=== PATIENT | female | born 1950 | race Caucasian/White ===

== ENCOUNTER → 2018-03-26 16:08 | Outpatient (CLI) | payer MEDICARE, SELFPAY ==
--- NOTE | 2018-03-26 16:18 | BI_ITS ---
MAMMOGRAPHY - BILATERAL SCREENING REASON FOR EXAM: Female, 67 years old. Routine annual screening examination. PERTINENT HISTORY: Mother with breast cancer. TECHNIQUE: Digital bilateral breast syed (3D mammographic acquisition) in the CC and MLO projections. 2-D mediolateral oblique (MLO) and craniocaudad (CC) views of both breasts were obtained. CAD: Full Field Digital Mammography with Computer Added Detection was performed. COMPARISON: Comparison is made with prior study dated July 19, 2016 and January 24, 2015. FINDINGS: Breast Composition: There are scattered areas of fibroglandular density. There are no dominant masses or suspicious calcifications. No other significant abnormalities are identified. There has been no significant change since the prior study. BI/SCREENING MAMM (CAD), BILAT IMPRESSION: Stable bilateral screening mammogram. Yearly follow-up mammogram recommended. (A) ASSESSMENT CATEGORY: BIRADS Category 1: Negative. A letter regarding these results will be sent to the patient by the facility within 30 days. Approximately 10% of breast cancers are not detected by mammography. A normal mammogram should not delay biopsy of a clinically suspicious abnormality. [id number] Electronically Signed: Chris Johns MD at 8:07 EDT Tel [phone], Service support ,
== END ==
DX: Z12.31 Encounter for screening mammogram for malignant neoplasm of breast (principal)
CPT/HCPCS: 77063; 77067

== ENCOUNTER → 2019-06-28 13:33 | Outpatient (CLI) | payer MEDICARE, SELFPAY ==
[2015-01-10 18:43] VITALS: BMI 29.2
--- NOTE | 2019-06-28 13:40 | EKG12_ITS ---
Test Reason : CP Blood Pressure : / mmHG Vent. Rate : 080 BPM Atrial Rate : 080 BPM P-R Int : 164 ms QRS Dur : 076 ms QT Int : 394 ms P-R-T Axes : 058 029 057 degrees QTc Int : 454 ms Normal sinus rhythm Normal ECG Reconfirmed by YOLANDA SAVAGE, DEQUAN ([id number]), assistant film editor ALFREDITO FOSTER ([id number]) on 07/02/2019 8:49:30 AM Referred By: Nancy Unger Confirmed By:DEQUAN GUERRERO MD
== END ==
PROVIDERS: Referring Provider Nurse Practitioner Family; Visit Provider Nurse Practitioner Family
DX: R07.89 Other chest pain (principal)
CPT/HCPCS: 93005

== ENCOUNTER 2019-06-28 13:57 | Emergency (ER) | payer MEDICARE, SELFPAY ==
[2019-06-28 14:05] VITALS: BP 138/67; PULSE 78; RESP 18; TEMP 36.6; O2SAT 96; BMI 26.6
--- NOTE | 2019-06-28 14:23 | RAD_ITS ---
STUDY: X-RAY CHEST REASON FOR EXAM: Female, 68 years old. Chest pain TECHNIQUE: Frontal and lateral views COMPARISON: March 30, 2012 FINDINGS: The lungs are clear and expanded. There is no demonstrated pleural abnormality. Normal size heart. Normal mediastinum and patti. Normal visualized pulmonary arteries. Normal visualized aortic arch and descending thoracic aorta. Degenerative changes of the thoracic spine. Normal visualized ribs, clavicles, and shoulders. There is no demonstrated abnormality of the visualized soft tissue structures of the upper abdomen. RAD/Chest PA and Lateral IMPRESSION: Normal x-ray examination of the chest. Electronically Signed: Rafael Ramos DO at 15:51 EST Tel [phone], Service support ,
[2019-06-28 14:32] LABS: Absolute Neutrophil Count 3.9 X10^3/uL (2.0-7.7); Basophil# 0.03 X10^3/uL; Basophil% 0.5 % (0-1); Eosinophil# 0.05 X10^3/uL; Eosinophils% 0.8 % (0-5); Hematocrit 38.7 % (37-47); Hemoglobin 12.7 g/dL (12.0-15.0); Lymphocyte % 28.7 % (19-41); Mean Corp Hgb Conc 32.8 g/dL (32-36); Mean Corpuscular Hgb 29.9 pg (27.0-32.0); Mean Corpuscular Volume 91.1 fL (81-99); Mean Platelet Vol. 11.2 fl (6.2-12.0); NRBC Flagged by Analyzer 0 % (0-5); Neutrophil # 3.89 X10^3/uL (2.7-7.7); Neutrophil % 61.8 % (47-70); Platelet Count 236 K/mm3 (150-450); RBC Distribution Width CV 13.3 % (11.6-14.6); RBC Distribution Width SD 44.5 fl (35.1-43.9); Red Blood Count 4.25 M/mm3 (4.2-5.4); White Blood Count 6.3 K/mm3 (4.4-11.0)
--- NOTE | 2019-06-28 14:49 | CPS ---
Pt. came to [facility] as a out patient. EKG was ordered by Nancy RODRIGUES. Was completed by JTAC at 13:48. Patient then went to ER to be seen for CP. EKG that was completed as a out patient was given to . Physician approved of this EKG for the CP because it was within 15-20 mins prior to being seen in ER.
[2019-06-28 14:55] LABS: Anion Gap 5 (5-15); BUN 19 mg/dL (7-18); BUN/Creat Ratio 20.7 RATIO (10-20); Calcium,Total 8.9 mg/dL (8.5-10.1); Chloride 105 mmol/L (98-107); Creatinine, Serum 0.92 mg/dL (0.55-1.02); EST Glomerular Filtration Rate 64 mL/min (>60); Est Glom Filt Rate - Afr Amer 78 mL/min (>60); Estimated Creatinine Clearance 56.12 ml/min; Glucose 125 mg/dL (74-106); Potassium 3.5 mmol/L (3.5-5.1); Sodium Level 141 mmol/L (136-145)
[2019-06-28 15:29] VITALS: BP 125/61; PULSE 72; RESP 13
[2019-06-28 16:00] VITALS: BP 111/66; PULSE 70; RESP 14; O2SAT 96
--- NOTE | 2019-06-28 16:14 | ED.DCSUM_ITS ---
- ER Visit Summary Date of Service: 06/28/19 Chief Complaint: Chest pain History of Present Illness: The patient is a 68 F who presents with chest pain that has been constant for the past month. Patient describes the pain is sharp and aching. Patient states the pain is over the substernal area and right lower chest. Patient states nothing makes it better or worse. Patient saw her primary care physician for this who did not feel it was cardiac in nature but ordered an outpatient EKG in case her pain would return. Patient had an outpatient EKG done today which was normal and then presented to the emergency department. Physical Examination: Vital signs are stable. Patient is afebrile. Patient is in no acute distress. Heart was regular rate and rhythm. Lungs are clear and equal bilaterally. There is tenderness over the substernal and right lower chest. There is no bony crepitance or step-off. Abdomen is soft and nontender. Cranial nerves II through XII are intact. There are no focal motor or sensory deficits noted. Oral mucosa is pink and moist. Neck is supple. Trachea is midline. There is no JVD noted. Test Results: EKG showed normal sinus rhythm with a rate of 80. There are no acute ST or T wave changes. This was unchanged compared to previous EKG dated 03/30/2012. CBC, basic metabolic profile, and troponin were obtained were all within normal limits. PA and lateral chest x-ray was obtained. There is no acute cardiopulmonary process. Emergency Department Course and Treatment: Patient was feeling better on reevaluation. Patient has a HEART score of 3. Patient was advised that this is low risk for acute cardiac event. Patient was instructed to follow-up with her primary care physician in 5 to 7 days. Patient understood and was agreeable with the plan. All questions were answered. Disposition: Discharge home Impression: Chest pain This note was generated with [employer] dictation software. It may contain incorrect words, spelling, and punctuation that were not noted in review of the chart prior to signing ED Disposition - Plan for ED Patient: Disposition: Home or Assisted Living Diagnosis: Chest pain Instructions: CHEST PAIN, Uncertain Cause Referrals: Shreya Tao [Primary Care Provider] - 5-7 Days
[2019-06-28 16:35] VITALS: BP 126/53
== END 2019-06-28 16:37 | disposition home or self-care (01) ==
PROVIDERS: Emergency Provider Emergency Medicine
DX: R07.9 Chest pain, unspecified (principal); E11.9 Type 2 diabetes mellitus without complications; Z79.84 Long term (current) use of oral hypoglycemic drugs; Z79.82 Long term (current) use of aspirin; Z79.899 Other long term (current) drug therapy
CPT/HCPCS: 71046; 80048; 84484; 85025; 93005; 99285; A4216

== ENCOUNTER → 2019-07-29 09:52 | Outpatient (CLI) | payer MEDICARE, MEDICAID, SELFPAY ==
--- NOTE | 2019-07-29 09:57 | NM_ITS ---
CLINICAL: 68-year-old female with reported history of right upper quadrant abdominal pain. RADIONUCLIDE HEPATOBILIARY SCINTIGRAPHY COMPARISON: None available FINDINGS: Following the intravenous administration of 5.3 mCi of 99m Tc Mebrofenin, hepatobiliary images reveal: 1. Relatively prompt and homogeneous radiopharmaceutical concentration is noted by a normal sized liver. No parenchymal defects are identified. 2. Gallbladder activity is identified at 15 minutes post radiopharmaceutical administration. 3. Small intestinal tract is observed at 45 minutes following tracer injection. 4. Washout of the radiopharmaceutical by the hepatic parenchyma appears qualitatively normal. Cholecystokinin (0.02 ug/kg) was administered intravenously over a 30-minute period. The post CCK gallbladder ejection fraction calculated at 33 minutes following Cholecystokinin administration was noted to be 46.0 % (normal greater than 35%). During 30 minutes of post CCK imaging, there is no scintigraphic evidence of reflux of the radiotracer into the common hepatic duct or refilling of the gallbladder. NM/Hepatobilliary Img w/Pharm Int IMPRESSION: 1. NORMAL 99m Tc Mebrofenin hepatobiliary imaging examination with Cholecystokinin. A. A gallbladder ejection fraction calculated to be greater than 35% following the administration of Cholecystokinin makes the probability of functional hepatobiliary disease (gallbladder and/or sphincter of Oddi dyskinesia) and/or organic hepatobiliary disease (chronic acalculous cholecystitis and/or cystic duct syndrome) to be low. (Samantha Hallman et al, Journal of Nuclear Medicine 32:1695, 1991). Electronically Signed: Nic Herrera DO at 22:54 EST Tel , Service support ,
== END ==
DX: R10.811 Right upper quadrant abdominal tenderness (principal)
CPT/HCPCS: 78227; A9537; J2805

== ENCOUNTER → 2019-11-04 10:07 | Outpatient (CLI) | payer MEDICARE, MEDICAID, SELFPAY ==
--- NOTE | 2019-11-04 10:10 | US_ITS ---
STUDY: ABDOMINAL ULTRASOUND REASON FOR EXAM: Female, 69 years old. RUQ PAIN AND BURNING X 2 WEEKS TECHNIQUE: Transabdominal ultrasound was performed with real-time and static thomas scale imaging. TECHNICAL QUALITY: Adequate. COMPARISON: None. FINDINGS: Liver: The liver measures 14.7 cm. There is increased echogenicity consistent with fatty infiltration. The bile ducts are within normal limits. There is hepatic color flow. The direction of portal flow is hepatopetal. There is no demonstrated mass lesion. Portal vein measurement: Gallbladder: Normal distended gallbladder. The gallbladder wall measures 2.6 mm. There is a positive sonographic Gage''s sign. There is no pericholecystic fluid. There is a solitary echogenic gallstone within the gallbladder. This measures 1.6 cm x 1.2 cm x 1.1 cm. Common Bile Duct (C.B.D.): The common bile duct measures 5.7 mm. Pancreas: Normal size of the head, body and tail of the pancreas. There is increased echogenicity of the pancreas. There is no demonstrated pancreatic mass or cyst. Spleen: Normal size of the spleen. The spleen measures 10.5 cm x 4.1 cm x 3.7 cm. Right Kidney: Normal size of the right kidney. The right kidney measures 9.3 cm x 4.5 cm x 4.2 cm. Normal renal cortex. The right cortex measures 1.5 cm. There is no demonstrated renal mass or cyst. There is no right hydronephrosis. Suspect 2 small nonobstructive intrarenal calculi. The larger measures 5 mm. Left Kidney: Normal size of the left kidney. The left kidney measures 10.7 cm x 4.2 cm x 4.4 cm. Normal renal cortex. The left cortex measures 1.6 cm. There is a 1.9 cm x 2.6 x 2.1 cm left renal cyst. There is no left hydronephrosis. Aorta: Unremarkable. I.V.C.: The IVC is patent. There is no ascites. US/Abdomen Complete IMPRESSION: Fatty infiltration of the liver. Solitary gallstone. Left renal cyst. 2 tiny nonobstructive right intrarenal calculus. Electronically Signed: Chris Johns, at 11:52 EDT , Service support ,
== END ==
DX: R10.11 Right upper quadrant pain (principal)
CPT/HCPCS: 76700

== ENCOUNTER 2022-11-19 13:15 | Emergency (ER) | payer MEDICARE, MEDICAID, SELFPAY ==
[2022-11-19 13:18] VITALS: BP 153/69; PULSE 88; RESP 14; TEMP 36.6; O2SAT 96; BMI 26.1
[2022-11-19 13:32] VITALS: BP 140/63; BP 146/56; BP 149/62; PULSE 100; PULSE 73; PULSE 84
--- NOTE | 2022-11-19 13:32 | EKG12_ITS ---
Test Reason : NEURO SYMPTOMS Blood Pressure : / mmHG Vent. Rate : 073 BPM Atrial Rate : 073 BPM P-R Int : 176 ms QRS Dur : 076 ms QT Int : 400 ms P-R-T Axes : 056 028 048 degrees QTc Int : 440 ms Normal sinus rhythm Normal ECG Confirmed by YOLANDA SAVAGE, DEQUAN ([id number]), photographic editor JAMIA MARIN ([id number]) on 11/20/2022 9:48:29 AM Referred By: NELLY Confirmed By:DEQUAN GUERRERO MD
[2022-11-19 13:34] VITALS: BMI 26.4
--- NOTE | 2022-11-19 13:34 | EX.ED.DYSGE1 ---
HPI History of Present Illness Chief Complaint: Neuro S/Sx Narrative Narrative: 72-year-old female presenting with dizziness. She states that yesterday/overnight she developed some vertiginous symptoms. She took her last dose of meclizine which she had and she states that her vertiginous dizziness got better however she still had a little bit of leftover nausea felt like she might be a little lightheaded. She woke up this morning feeling similar. She was able to ambulate. She went to the urgent care today and was referred to the ER out of concern for stroke. Patient does have a mild headache. No visual complaints. No slurred speech. [facility] Medical History Anxiety Arthritis Atrial fibrillation Back pain Diabetes Gallstones GERD (gastroesophageal reflux disease) Hyperlipidemia Hypertension Mitral valve prolapse Home Medications aspirin 81 mg chewable tablet 81 mg PO DAILY 01/10/15 [History Last Taken 01/09/15] hydrochlorothiazide 25 mg tablet 25 mg PO DAILY 01/10/15 [History Last Taken 01/09/15] lisinopril 10 mg tablet 10 mg PO DAILY 01/10/15 [History Last Taken 01/09/15] paroxetine HCl 40 mg tablet 20 mg PO DAILY 01/10/15 [History Last Taken 01/09/15] rosuvastatin 10 mg tablet 10 mg PO DAILY 01/10/15 [History Last Taken 01/09/15] glipizide 5 mg tablet 5 mg PO DAILY 11/19/22 [History Last Taken Unknown] meclizine 25 mg tablet 25 mg PO TID PRN dizziness #30 tabs 11/19/22 [Rx Last Taken Unknown] omeprazole magnesium 20 mg tablet,delayed release (Prilosec OTC) 20 mg PO DAILY 11/19/22 [History Last Taken Unknown] Allergy/AdvReac Type Severity Reaction Status Date / Time metformin AdvReac Pain in Verified 11/19/22 13:17 joints Family History Mother Diabetes Breast cancer mets to LN Grandmother Diabetes Surgical History History of colonoscopy (~2015) History of esophagogastroduodenoscopy (EGD) (~2015) History of total vaginal hysterectomy Social History Smoking Status: Never smoker ROS ROS ED Review of Systems ROS Unobtainable: Denies due to encephalopathy Constitutional Constitutional ED: Denies chills, fever(s) or subjective Eyes Eyes: Denies blurry vision or change in vision ENT ENT ED: Denies ear pain or rhinorrhea Cardiovascular Cardiovascular: Denies chest pain Respiratory/Chest Respiratory/Chest: Denies cough, dyspnea or dyspnea on exertion Gastrointestinal Gastrointestinal: Reports nausea; Denies abdominal pain Genitourinary Genitourinary ED: Denies dysuria or hematuria Musculoskeletal Musculoskeletal: Denies arthralgias or back pain Integumentary Denies abscess or Abrasions Neurologic Neurologic: Reports headache(s) and other Details: Dizziness Psychiatric Psychiatric: Denies anxiety or depression EXAM Physical Exam Const Vital Signs: 11/19/22 13:18 11/19/22 13:32 Temperature 97.8 F Temperature Source Temporal Pulse Rate 88 Pulse Rate [Lying] 73 Pulse Rate [Sitting (for 1 minute prior to obtaining)] 84 Pulse Rate [Standing (for 1 minute prior to obtaining)] 100 Respiratory Rate 14 Blood Pressure 153/69 H Blood Pressure [Lying] 149/62 H Blood Pressure [Sitting (for 1 minute prior to obtaining)] 146/56 H Blood Pressure [Standing (for 1 minute prior to obtaining)] 140/63 H Blood Pressure Mean 97 Blood Pressure Mean [Lying] 91 Blood Pressure Mean [Sitting (for 1 minute prior to obtaining)] 86 Blood Pressure Mean [Standing (for 1 minute prior to obtaining)] 88 Pulse Ox 96 Oxygen Delivery Method Room Air Positive well nourished General Appearance ED: NAD HEENT Reports moist mucous membranes and dry mucous membranes HEENT Narrative: Positive [place] on exam. Mouth ED: Yes dry mucous membranes Mouth: dry mucous membranes Eyes PERRL and EOMs intact bilaterally MDM MDM MDM Narrative Medical decision making narrative: Patient presenting with initially vertiginous dizziness and then she states she feels nauseous and lightheaded. Denies any chest pain, palpitations, shortness of breath. No fevers or chills. Patient states that when she took her meclizine earlier did help and the vertiginous symptoms are gone. I suspect this is simply vertigo. We will obtain lab work to rule out electrolyte abnormalities, dehydration, anemia. Obtain EKG to assess for dysrhythmia. She will be accompanied by high-sensitivity troponin. Patient reporting any chest pain. She is given meclizine and Phenergan here. I did obtain orthostatic vital signs and her blood pressures remained stable however her heart rate does increase 73-100. Patient is given a liter normal saline. CBC shows a normal white blood cell count of 6.4. Hemoglobin hematocrit are stable. Platelets are normal. Liver function, renal function, all within normal limits. Potassium slightly low at 3.3. High-sensitivity troponin is 5. EKG on my interpretation shows normal sinus rhythm with ventricular rate of 73 beats a minute outside of ischemic change or dysrhythmia. Impression: 1. Dizziness Lab Data Labs: Laboratory Results - last 24 hr 11/19/22 11/19/22 13:13 13:13 WBC 6.4 RBC 4.53 Hgb 12.7 Hct 39.7 MCV 87.6 MCH 28.0 MCHC 32.0 RDW Std Deviation 44.1 H RDW Coeff of Anthony 13.9 Plt Count 242 MPV 11.3 Immature Gran % (Auto) 0.200 Neut % (Auto) 57.0 Lymph % (Auto) 34.0 [place] % (Auto) 6.8 Eos % (Auto) 1.2 Baso % (Auto) 0.8 Absolute Neuts (auto) 3.7 Absolute Lymphs (auto) 2.19 Nucleated RBC % 0 Sodium 143 Potassium 3.3 L Chloride 104 Carbon Dioxide 32.0 Anion Gap 7 BUN 15 Creatinine 0.91 Estim Creat Clear Calc 53.54 Est GFR (MDRD) Af Amer 78 Est GFR (MDRD) Non-Af 64 BUN/Creatinine Ratio 16.4 Glucose 129 H Calcium 9.1 Total Bilirubin 0.60 AST 41 H ALT 33 Alkaline Phosphatase 81 Troponin I High Sens 5 Total Protein 7.0 Albumin 3.6 Globulin 3.4 Albumin/Globulin Ratio 1.1 Discharge Plan Triage Chief Complaint: Neuro S/Sx ED Provider: Brody Cobb Dx/Rx/DC Orders Instructions: ED Vertigo, Unspecified Prescriptions: New meclizine 25 mg tablet 25 mg PO TID PRN (Reason: dizziness) Qty: 30 0RF No Action lisinopril 10 MG tablet 10 mg PO DAILY Label Comments: blood pressure aspirin 81 MG tablet,chewable 81 mg PO DAILY Label Comments: heart health hydrochlorothiazide 25 MG tablet 25 mg PO DAILY Label Comments: blood pressure paroxetine HCl 40 MG tablet 20 mg PO DAILY Label Comments: depression rosuvastatin 10 MG tablet 10 mg PO DAILY Label Comments: high cholesterol glipizide 5 mg tablet 5 mg PO DAILY Label Comments: TAKE 1/2 TABLET EVERY DAY FOR 2 WEEKS, THEN TAKE 1 TABLET DAILY omeprazole magnesium [Prilosec OTC] 20 mg Tablet,Delayed Release (Dr/Ec) 20 mg PO DAILY Primary Care Provider: Yeimy Emery NP Referrals: Yeimy Emery NP, [employer] [Primary Care Provider] - Disposition Disposition: Home, Self Care
[2022-11-19] MEDS: proMETHazine 25 MG/ML Syringe 12.5 MG IM (13:50)
[2022-11-19] MEDS: Meclizine HCl 25 MG Tablet PO (13:51)
[2022-11-19 13:59] LABS: Absolute Lymphocyte Count 2.19 X10^3/uL (0.83-4.51); Absolute Neutrophil Count 3.7 X10^3/uL (2.0-7.7); Basophil# 0.05 X10^3/uL; Basophil% 0.8 % (0-1); Eosinophil# 0.08 X10^3/uL; Eosinophils% 1.2 % (0-5); Hematocrit 39.7 % (37-47); Hemoglobin 12.7 g/dL (12.0-15.0); Lymphocyte # 2.19 X10^3/ul (0.83-4.51); Mean Corpuscular Volume 87.6 fL (81-99); Mean Platelet Vol. 11.3 fl (6.2-12.0); Monocyte# 0.44 X10^3/uL; Monocyte% 6.8 % (0-10); NRBC Flagged by Analyzer 0 % (0-5); Neutrophil # 3.67 X10^3/uL (2.7-7.7); Platelet Count 242 K/mm3 (150-450); RBC Distribution Width CV 13.9 % (11.6-14.6); RBC Distribution Width SD 44.1 fl (35.1-43.9); Red Blood Count 4.53 M/mm3 (4.2-5.4); White Blood Count 6.4 K/mm3 (4.4-11.0)
[2022-11-19 14:10] LABS: ALB/GLOB Ratio 1.1 RATIO (0.9-2.4); AST(SGOT) 41 U/L (15-37); Alanine Aminotransfer ALT/SGPT 33 U/L (13-56); Albumin, Serum 3.6 g/dL (3.2-5.0); Alkaline Phosphatase 81 U/L (45-117); Anion Gap 7 (5-15); BUN 15 mg/dL (7-18); BUN/Creat Ratio 16.4 RATIO (10-20); Calcium,Total 9.1 mg/dL (8.5-10.1); Chloride 104 mmol/L (98-107); Creatinine, Serum 0.91 mg/dL (0.55-1.02); EST Glomerular Filtration Rate 64 mL/min (>60); Est Glom Filt Rate - Afr Amer 78 mL/min (>60); Estimated Creatinine Clearance 53.54 ml/min; Globulin 3.4 g/dL (2.2-4.2); Glucose 129 mg/dL (74-106); Potassium 3.3 mmol/L (3.5-5.1); Sodium Level 143 mmol/L (136-145); Troponin-I HS 5 pg/mL (3.0-54.0)
[2022-11-19] MEDS: 0.9% Normal Saline 1,000 ML 999 ML IV (14:35)
[2022-11-19 15:29] VITALS: BP 140/60; PULSE 90; RESP 16; O2SAT 99
== END 2022-11-19 16:04 | disposition home or self-care (01) ==
PROVIDERS: Emergency Provider Student in an Organized Health Care Education/Training Program; PCP Registered Nurse; Visit Provider Student in an Organized Health Care Education/Training Program
DX: R42 Dizziness and giddiness (principal); E11.9 Type 2 diabetes mellitus without complications; R51.9 Headache, unspecified; I10 Essential (primary) hypertension; E78.5 Hyperlipidemia, unspecified; K21.9 Gastro-esophageal reflux disease without esophagitis; Z79.82 Long term (current) use of aspirin; Z79.84 Long term (current) use of oral hypoglycemic drugs; Z79.899 Other long term (current) drug therapy
CPT/HCPCS: 80053; 84484; 85025; 93005; 96360; 96372; 99284; J7030; A4216

== ENCOUNTER 2025-04-17 19:25 | Emergency (ER) | payer MEDICARE, MEDICAID, SELFPAY ==
[2025-04-17 19:25] VITALS: BP 150/63; PULSE 85; RESP 16; TEMP 36.3; O2SAT 98; BMI 25.8
--- NOTE | 2025-04-17 19:50 | RAD_ITS ---
PROCEDURE: SHOULDER MIN 2 VIEWS; ELBOW MIN 3 VIEWS 04/17/2025 REASON FOR EXAM: FALL TECHNIQUE: Procedure Code: RADSH; RADEL Modality: DX Procedure: SHOULDER MIN 2 VIEWS; ELBOW MIN 3 VIEWS Laterality: Right COMPARISON: None available. FINDINGS: Bones: No acute fractures or dislocations. Joints: Normal alignment. Mild degenerative changes. Soft tissues: Soft tissues are unremarkable. Other: Visualized lung key unremarkable. No pneumothorax. RAD/Shoulder min 2 Views IMPRESSION: DEGENERATIVE OSTEOARTHROSIS. NO ACUTE FINDINGS. Reading [facility]
--- NOTE | 2025-04-17 19:53 | EX.ED.UPPERE ---
HPI History of Present Illness Chief Complaint: Upper Extremity Injury Narrative Narrative: Patient is a 74-year-old female with a past medical history of hypertension, hyperlipidemia, diabetes, anxiety who presented to the emergency department the chief complaint of right shoulder pain. Patient states that she was at a wedding that yesterday afternoon and she states that while going up a set of stairs she tripped and fell landing on her right shoulder. She states that she had pain however she states that she was refusing to leave the wedding and wanted to stay for the entire event as they drove to [place] for this. She states that she was not going to the ER up there and told everyone that once she returned here back to [place] she would come to the hospital to be further evaluated. She states that she is unable to lift her right shoulder as she has significant pain when doing so. Patient states that she did not hit her head she not pass out she members entire event she states that she is not on any blood thinning medications. [facility] Medical History (Updated 04/17/25 @ 21:[address] Rickey Vizcarra, ) GERD (gastroesophageal reflux disease) Gallstones Diabetes Anxiety Mitral valve prolapse Atrial fibrillation Back pain Arthritis Hypertension Hyperlipidemia Home Medications ?Medication ?Instructions ?Recorded ?Last Taken ?Type aspirin 81 mg chewable tablet 81 mg PO DAILY 01/10/15 01/09/15 History hydrochlorothiazide 25 mg tablet 25 mg PO DAILY 01/10/15 01/09/15 History lisinopril 10 mg tablet 10 mg PO DAILY 01/10/15 01/09/15 History paroxetine HCl 40 mg tablet 20 mg PO DAILY 01/10/15 01/09/15 History rosuvastatin 10 mg tablet 10 mg PO DAILY 01/10/15 01/09/15 History glipizide 5 mg tablet 5 mg PO DAILY 11/19/22 Unknown History meclizine 25 mg tablet 25 mg PO TID PRN dizziness #30 tabs 11/19/22 Unknown Rx omeprazole magnesium 20 mg 20 mg PO DAILY 11/19/22 Unknown History tablet,delayed release (Prilosec OTC) ondansetron 4 mg disintegrating 4 mg PO Q6H PRN nausea and 04/17/25 Unknown Rx tablet vomiting #20 tabs oxycodone-acetaminophen 5 mg-325 1 tab PO Q6H PRN pain 2 days #8 04/17/25 Unknown Rx mg tablet (Endocet) tabs Allergy/AdvReac Type Severity Reaction Status Date / Time metformin AdvReac Pain in Verified 04/17/25 19:28 joints Family History Mother Diabetes Breast cancer mets to LN Grandmother Diabetes Surgical History History of total vaginal hysterectomy History of esophagogastroduodenoscopy (EGD) (~2015) History of colonoscopy (~2016) Social History (Updated 04/17/25 @ 20:03 by Kerri Antonio) household members: spouse housing: house Smoking Status: Never smoker ROS ROS ED ROS Narrative Constitutional: Denies headache, fevers or chills Neurological: Denies any numbness or tingling Musculoskeletal: Complains of right shoulder pain as noted above Skin: Denies any rashes or lesions EXAM Physical Exam Narrative Exam Narrative: General: Patient was lying in bed rest comfortably did not appear to be acute distress Head: Atraumatic, normocephalic Eyes: PERRL bilaterally, EOMI bilaterally, no conjunctival injection noted Neck: Soft, supple, trachea midline Cardiovascular: Regular rate Abdomen: Soft, nondistended, no tenderness palpation Musculoskeletal: Patient has pain with attempted range of motion of the right shoulder she has mild tenderness palpation of the right elbow although bony prominence palpated joints taken to full range of motion no pain elicited Extremities: Strength is limited to in the right upper extremity secondary to her pain however 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 the rest of her strength in the left upper extremity in the bilateral lower extremities +5/5 strength noted, radial pulses +2/4 in the right upper extremity Neurological: Patient is following commands knew that she was at [facility] year is 2024 Skin: Warm, dry, intact no rashes or lesions noted Const Vital Signs: 04/17/25 19:25 Temperature 97.4 F L Temperature Source Oral Pulse Rate 85 Respiratory Rate 16 Blood Pressure 150/63 H Blood Pressure Mean 92 Pulse Ox 98 Oxygen Delivery Method Room Air MDM MDM MDM Narrative Medical decision making narrative: Patient is a 74-year-old female who presented to the emergency department with a chief complaint of right shoulder pain. On the differential diagnose includes but to proximal humerus fracture, dislocation of her shoulder, supracondylar humerus fracture. Once the workup is obtained and reviewed she will be reevaluated. Patient be given [place] and Zofran. Patient's elbow x-ray reviewed by myself as official read from radiology still pending however this is been taking significant amount of time there is no acute fracture or dislocation noted no posterior joint effusion noted there is osteophyte over the olecranon noted. Patient's shoulder x-ray reviewed by myself as well which showed no acute fracture or dislocation noted. I discussed results with the patient we will place her in a sling for comfort she is advised that she needs to come out of this and do pendulum swings to prevent from developing adhesive capsulitis. She was advised to follow-up with orthopedics which she was referred to she was advised to rotate Tylenol and ibuprofen [id number] for mild to moderate pain and to use the Endocet and Zofran for severe pain. She was vies to not operate anything at any influence this medication. There is question that she may have developed a rotator cuff tear from the fall which she was notified about as well. All question concerns answered she was discharged home in stable condition family member bedside is also agreeable to this plan. Discharge Plan Triage Chief Complaint: Upper Extremity Injury ED Provider: Rickey Vizcarra Dx/Rx/DC Orders Clinical Impression: Fall, Pain in right shoulder, Hypertension Prescriptions: New oxycodone-acetaminophen [Endocet] 5-325 mg tablet 1 tab PO Q6H PRN (Reason: pain) 2 Days Qty: 8 0RF ondansetron 4 mg tablet,disintegrating 4 mg PO Q6H PRN (Reason: nausea and vomiting) Qty: 20 0RF No Action lisinopril 10 MG tablet 10 mg PO DAILY Patient Comments: blood pressure aspirin 81 MG tablet,chewable 81 mg PO DAILY Patient Comments: heart health hydrochlorothiazide 25 MG tablet 25 mg PO DAILY Patient Comments: blood pressure paroxetine HCl 40 MG tablet 20 mg PO DAILY Patient Comments: depression rosuvastatin 10 MG tablet 10 mg PO DAILY Patient Comments: high cholesterol glipizide 5 mg tablet 5 mg PO DAILY Patient Comments: TAKE 1/2 TABLET EVERY DAY FOR 2 WEEKS, THEN TAKE 1 TABLET DAILY omeprazole magnesium [Prilosec OTC] 20 mg Tablet,Delayed Release (Dr/Ec) 20 mg PO DAILY meclizine 25 mg tablet 25 mg PO TID PRN (Reason: dizziness) Qty: 30 0RF Primary Care Provider: Yeimy Emery NP Referrals: Yeimy Emery NP, [employer] [employer] [Primary Care Provider, [facility]] Jaron Bhardwaj MD [Med Staff - Active Staff, Orthopedics] Activity Restrictions/Additional Instructions: Use sling for comfort and ensure that you are moving your arm out of the sling and doing pendulum swings as we discussed here in the emergency department to prevent from developing frozen shoulder. Rotate Tylenol and ibuprofen [id number] for mild to moderate pain when you do this you can take something every 3 hours for pain max dose Tylenol in 24 hours 4000 mg max dose of ibuprofen in 24 hours 3200 mg. Use the Endocet as prescribed for severe pain and sure that he take Zofran with this that was prescribed as well as this will upset your stomach. Follow-up with orthopedic surgeon they referred to. Return with worsening symptoms or other concerns Print Language: [place] Disposition Disposition: Home, Self Care
[2025-04-17] MEDS: HYDROcodone Bitartrate/Apap 5/325 Tablet PO (20:16)
--- NOTE | 2025-04-17 20:20 | RAD_ITS ---
PROCEDURE: SHOULDER MIN 2 VIEWS; ELBOW MIN 3 VIEWS 04/17/2025 REASON FOR EXAM: FALL TECHNIQUE: Procedure Code: RADSH; RADEL Modality: DX Procedure: SHOULDER MIN 2 VIEWS; ELBOW MIN 3 VIEWS Laterality: Right COMPARISON: None available. FINDINGS: Bones: No acute fractures or dislocations. Joints: Normal alignment. Mild degenerative changes. Soft tissues: Soft tissues are unremarkable. Other: Visualized lung key unremarkable. No pneumothorax. RAD/Elbow min 3 Views IMPRESSION: DEGENERATIVE OSTEOARTHROSIS. NO ACUTE FINDINGS. Reading [facility]
[2025-04-17 21:47] VITALS: BP 158/49; PULSE 66; RESP 18; TEMP 36.2; O2SAT 96
== END 2025-04-17 21:58 | disposition home or self-care (01) ==
PROVIDERS: Emergency Provider Emergency Medicine; PCP Registered Nurse; Visit Provider Emergency Medicine
DX: M25.511 Pain in right shoulder (principal); I48.91 Unspecified atrial fibrillation; E11.9 Type 2 diabetes mellitus without complications; W10.9XXA Fall (on) (from) unspecified stairs and steps, initial encounter; I10 Essential (primary) hypertension; E78.5 Hyperlipidemia, unspecified; Z79.82 Long term (current) use of aspirin; Z79.84 Long term (current) use of oral hypoglycemic drugs; Z79.899 Other long term (current) drug therapy
CPT/HCPCS: 73030; 73080; 99283

== ENCOUNTER 2025-06-01 09:00 | Outpatient (RCR) | payer MEDICARE, MEDICAID, SELFPAY ==
--- NOTE | 2025-05-04 10:59 | HP.PTEVAL_ITS ---
Patient's Visit Information Visit Information Visit Information: SHRAVAN ALTAMIRANO is a 74 year old F referred to Physical Therapy by Dr. Jaron Bhardwaj MD with a diagnosis of R shoulder OA and Impingement. Date of Evaluation: 05/04/25 Physical Therapist: NATE Diaz Visit Plan Frequency: 2x /Week Duration: 2 Months Plan: 2X/ week for 8 weeks for R shoulder PROM/AAROM/AROM, scapular and RC str ength, postural exercises with HEP. May use US, MH and ICE to help with inflammation if needed Subjective Subjective: Pt was at a [employer] on Apr 16 AND THEY had a layered deck and she tripped on the last layer and went down on the R side. She went to the ER when she got home. She reports that it is getting better and she can raise it a little bit. She has OA in the R shoulder and also DX with impingement. She is R handed. She is sleeping well and can lay on her R shoulder. 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 37# UE AROM: R shoulder flexion 85 and L WFL R shoulder ER 50 and L 70 R shoulder ABD 85 and L WFL R shoulder IR L1 and L T12 UE MMT: R shoulder flex 4.3 and L 5.9 R shoulder ER 7.2 and L 7.9 R shoulder IR 9.3 and L 9.6 PROM R shoulder: able to get farther than AROM to approx 130 degrees flexion with some pain Balance/Special Test Scores Quick DASH Score: 40.9075 Goals Goal 1:: I HEP Goal Time Frame: 6-8 Weeks Goal 2:: Increase R shoulder AROM (at the time of the eval: UE AROM: R shoulder flexion 85 and L WFL R shoulder ER 50 and L 70 R shoulder ABD 85 and L WFL R shoulder IR L1 and L T12) Goal Time Frame: 6-8 Weeks Goal 3:: Increase R shoulder strength (at the time of the eval: UE MMT: R shoulder flex 4.3 and L 5.9 R shoulder ER 7.2 and L 7.9 R shoulder IR 9.3 and L 9.6) Goal Time Frame: 6-8 Weeks Goal 4:: Be able to use her R arm for ADLs without pain Goal Time Frame: 6-8 Weeks Rehabilitation Potential Rehabilitation Potential: Good Anticipated Interventions Patient/Client Instruction: Educate patient on: Condition and Plan of Care For the Purpose of:: To decrease pain, To increase ROM, To improve nutrient delivery to tissue, To improve muscle performance and motor function, To improve ability to perform ADL's, To increase tolerance to activity/condition/position, To improve performance and independence with ADL's, To decrease level of supervision to perform tasks, To improve ability of physical actions for home/community/work/leisure, To improve health of tissue, To decrease soft tissue restriction and To increase flexibility/ROM Therapeutic Exercise to Include: Strength training, Endurance training, Postural training, Flexibilty training, Passive ROM, Active ROM and Scapular Strength/Stabilization For the Purpose of:: To decrease pain, To increase ROM, To improve nutrient delivery to tissue, To improve ability to perform ADL's, To improve performance and independence with ADL's, To decrease level of supervision to perform tasks, To improve ability of physical actions for home/community/work/leisure, To improve health of tissue, To decrease soft tissue restriction, To increase flexibility/ROM and To assume or resume ADL's Manual Therapy Techniques to Include: Passive ROM For the Purpose of:: To decrease pain, To increase ROM, To improve nutrient delivery to tissue, To improve muscle performance and motor function, To improve ability to perform ADL's, To decrease soft tissue restriction and To increase flexibility/ROM Cryotherapy (ice pack, ice massage): Yes Thermo therapy (hot pack): Yes Ultrasound (thermal/non thermal): Yes For the Purpose of:: To decrease pain, To increase ROM, To improve nutrient delivery to tissue, To improve muscle performance and motor function, To improve ability to perform ADL's, To increase tolerance to activity/condition/position, To improve performance and independence with ADL's, To decrease level of supervision to perform tasks, To improve health of tissue, To decrease soft tissue restriction and To increase flexibility/ROM Text: Thank you for the opportunity to evaluate your patient. For Medicare and Medicare HMO plans, please review the plan of care and approve it. It will need to be FAXED BACK to us at [phone] for Medicare purposes. For Medicare only, by signing this I certify the plan of care. Please let me know if there are questions or concerns regarding this plan of care. Physician Signature: Date:
--- NOTE | 2025-06-01 09:43 | HP.PTDCSUM ---
Discharge Summary D/C summary: It has been my pleasure to treat SHRAVAN ALTAMIRANO referred by Dr. Jaron Bhardwaj MD, with the diagnosis of R shoulder OA and Impingement for a total of 9 visit(s). Discharge Date: 06/01/25 Please see the following information for a summary of their discharge status. Subjective Subjective: Pt reports doing her HEP and doing everything that she could not do before. It bee a few weeks since she has had pain. Pain R shoulder pain: Pain Intensity (Out of 10): 0 Overall Improvement % Improvement: 100 Objective Objective/Function: UE AROM: R shoulder flexion 145 and L WFL R shoulder ER 55 and L 70 R shoulder ABD 175 and L WFL R shoulder IR T12 and L T12) UE MMT: R shoulder flex 10.3 and L 11.2 R shoulder ER 9 and L 10 R shoulder IR 9.3 and L 9.6) Goals Goal 1:: I HEP Goal Progress: Goal Met Goal 2:: Increase R shoulder AROM (at the time of the eval: UE AROM: R shoulder flexion 85 and L WFL R shoulder ER 50 and L 70 R shoulder ABD 85 and L WFL R shoulder IR L1 and L T12) Goal Progress: Goal Met Goal 3:: Increase R shoulder strength (at the time of the eval: UE MMT: R shoulder flex 4.3 and L 5.9 R shoulder ER 7.2 and L 7.9 R shoulder IR 9.3 and L 9.6) Goal Progress: Goal Met Goal 4:: Be able to use her R arm for ADLs without pain Goal Progress: Goal Met Plan Plan: DC PT to HEP D/C Information Discharge Comments: DC PT to HEP d/c sentence: If there are questions or concerns regarding this patient's physical therapy, please feel free to call me at [phone]. Thank you for the referral of this patient. Sincerely, Caterina Mijares, MPT Balance/Gait/Functional tests Balance/Special Test Scores Quick DASH Score: 2.2725 Improvement % Improvement: 100
== END 2025-06-01 12:34 | disposition home or self-care (01) ==
LOC: PT 09:00
PROVIDERS: PCP Registered Nurse; Referring Provider Orthopaedic Surgery Sports Medicine; Visit Provider Orthopaedic Surgery Sports Medicine
DX: M19.011 Primary osteoarthritis, right shoulder (principal); M25.811 Other specified joint disorders, right shoulder
CPT/HCPCS: 97110; 97140; 97161; 97530